=== PATIENT | male | born 1960 | race Caucasian/White ===

== ENCOUNTER 2020-04-04 13:44 | Inpatient (IN) | payer BC, OTHER ==
[2020-04-04] VITALS (10 sets, daily range): BP systolic 98–123; BP diastolic 63–88
[~2020-04-04] VITALS: Ht 182.8 cm; Wt 102.0 kg
[2020-04-04] MEDS ORDERED: polyethylene glycoL POWDER 17 GM (MIRALAX) PACK PO PRN (14:00)
[2020-04-04] MEDS ORDERED: BISACODYL 10 MG SUPP (DULCOLAX) PR PRN (14:00)
[2020-04-04] MEDS ORDERED: MELATONIN 3 MG TABLET PO PRN (14:00)
[2020-04-04] MEDS ORDERED: ONDANSETRON 4 MG/2 ML (SDV) Z0FRAN IV PRN (14:00)
[2020-04-04] MEDS ORDERED: ACETAMINOPHEN 325 MG TABLET PO PRN (14:00)
[2020-04-04] MEDS ORDERED: ONDANSETRON 4 MG (ZOFRAN) ORAL DISSOLVE TAB PO PRN (14:00)
[2020-04-04] MEDS ORDERED: ANTACID SUSP 30 ML UDC (MYLANTA) PO PRN (14:00)
--- NOTE | 2020-04-04 15:55 | History & Physical-Hospitalist ---
History of Present Illness HPI/Chief Complaint Pt is a 60yoCM with a PMH of CAD and HTN who presented to the ER due to chest pain. He states it started today and was intermittent and has actually resolved when he was in the ER. He reports that he recently had a normal stress test and echo but was told that he needed a cath as well but he is unsure why. He follows with Dr Dhillon for cardiology at [place]. He had a heart attack in 2018 that was treated at [place]. He denies any SOB, nausea, diaphoresis, or radiation of the pain. He denies any alleviating or aggravating factors. He does not currently have any chest pain. He was also found to be in a-fib with RVR but denies any palpitations. Source: patient Date Seen 04/04/20 Time Seen by a Provider: 15:40 Attending Physician Randy Mennedez MD PCP Referring Physician Date of Admission Home Medications & Allergies Home Medications Reviewed patient Home Medication Reconciliation performed by pharmacy medication reconciliations emergency room technician and/or nursing. Patients Allergies have been reviewed. Allergies Allergies Coded Allergies prasugrel (Verified Allergy, Unknown, 04/04/20) SOB Physical Exam Physical Exam Vital Signs Vital Signs - First Documented 04/04/20 15:30 Temp 36.7 Capillary Refill : Height, Weight, BMI Height: '" Weight: lbs. oz. kg; BMI Method: General Appearance: No Apparent Distress, WD/WN Eyes: Bilateral Eye Normal Inspection, Bilateral Eye PERRL HEENT: Normal ENT Inspection, Moist Mucous Membranes Neck: Normal Inspection, Supple Respiratory: Chest Non Tender, Lungs Clear, No Accessory Muscle Use, No Respiratory Distress Cardiovascular: No JVD, No Murmur, Irregularly Irregular Gastrointestinal: Normal Bowel Sounds, Non Tender, Soft Extremity: No Calf Tenderness, No Pedal Edema Neurologic/Psychiatric: Alert, Oriented x3, Normal Mood/Affect Skin: Normal Color, Warm/Dry Results Results/Procedures Labs Patient resulted labs reviewed. Assessment/Plan Admission Diagnosis A-fib with RVR Admission Status: Inpatient Order (span 2 midnights) Assessment and Plan A-fib with RVR CAD chest pain HTN New onset Rate was between 90-110 while I was in the room- will monitor on telemetry Cardiology consulted, appreciate recs Will start on cardizem orally Request records from [place] BP was on the low side in outside ER, trend Check troponin here DVT ppx: RANDY Sesay MD Apr 04, 2020 15:55
[2020-04-04] MEDS ORDERED: ENOXAPARIN 100 MG/1 ML (LOVENOX) SYR SC SCH (16:00)
[2020-04-04 16:43] LABS: CHLORIDE 107 MMOL/L (98-107); POTASSIUM 3.9 MMOL/L (3.6-5.0); SODIUM 138 MMOL/L (135-145)
[2020-04-04 16:45] LABS: CALCIUM 9.3 MG/DL (8.5-10.1); GLUCOSE 94 MG/DL (70-105)
[2020-04-04 16:46] LABS: CARBON DIOXIDE 21 MMOL/L (21-32)
[2020-04-04 16:49] LABS: CREATININE SERUM 0.84 MG/DL (0.60-1.30); GFR ESTIMATED > 60
[2020-04-04 16:50] LABS: BUN/CREATININE RATIO 12
[2020-04-04] MEDS ORDERED: AMIODARONE INJECTION 150 MG in D5W 100 ML IVPB 100 ML IV NR (17:30)
[2020-04-04] MEDS ORDERED: AMIODARONE INJECTION 450 MG in D5W IV SOLUTION (EXCEL) 250 ML IV SCH (17:30)
--- NOTE | 2020-04-04 17:33 | Consultation-Cardiology ---
HPI-Cardiology Cardiology Consultation: Date of Consultation 04/04/20 Date of Admission Attending Physician Sujatha Menendez MD Admitting Physician Consulting Physician Narendra SANTILLAN MD HPI: Time Seen by a Provider: 17:33 Pt is a 60yoCM with a PMH of CAD and HTN who presented to the ER due to chest pain. He states it started today and was intermittent and has actually resolved when he was in the ER. He reports that he recently had a normal stress test and echo but was told that he needed a cath as well but he is unsure why. He follows with Dr Dhillon for cardiology at [place]. He had a heart attack in 2018 that was treated at [place]. He denies any SOB, nausea, diaphoresis, or radiation of the pain. He denies any alleviating or aggravating factors. He does not currently have any chest pain. He was also found to be in a-fib with RVR but denies any palpitations. OIZ-Wojvax-Cgoxof Hx Patient Social History Alcohol Use: Denies Use Recreational Drug Use: No Recent Foreign Travel: No Recent Infectious Disease Expo: No Physical Abuse Screen: No Sexual Abuse: No Past Medical History PMH As described under Assessment. Family Medical History Family History: Bone cancer 19 FATHER FH: lung cancer G8 BROTHER Allergies and Home Medications Allergies Coded Allergies: amiodarone (Verified Allergy, Unknown, Shortness of Breath, 04/04/20) SOB,ITCHING,SWEATING prasugrel (Verified Allergy, Unknown, 04/04/20) SOB Home Medications Apixaban 5 Mg Tablet, 5 MG PO BID Prescribed by: ASHLEY DONAHUE on 04/05/20 1747 Aspirin 81 Mg Tab.chew, 81 MG PO DAILY, (Reported) Atorvastatin Calcium 40 Mg Tablet, 40 MG PO HS, (Reported) Carvedilol 3.125 Mg Tablet, 3.125 MG PO BID, (Reported) Clopidogrel Bisulfate 75 Mg Tablet, 75 MG PO DAILY, (Reported) Fluticasone Propionate 16 Gm [place].susp, 1 SPRAY NSEACH BID, (Reported) Isosorbide Mononitrate 30 Mg Tab.er.24h, 30 MG PO DAILY, (Reported) Lisinopril 10 Mg Tablet, 10 MG PO DAILY, (Reported) Nitroglycerin 0.4 Mg Tab.subl, 0.4 MG SL UD PRN for CHEST PAIN (ANGINA), (Reported) Physical Exam-Cardiology Physical Exam Vital Signs/I&O Capillary Refill : Data Review Labs Microbiology 04/04/20 MRSA Screen - Final, Complete MRSA not isolated A/P-Cardiology Plan Thank you for your consultation. Please call me if you have any questions. Travis Santillan MD, FACP, FACC, FSCAI, FHRS, CCDS Interventional Cardiology Cardiac Electrophysiology Vascular Medicine and Endovascular Interventions Clinical Quality Measures DVT/VTE Risk/Contraindication: Risk Factor Score Per Nursin RFS Level Per Nursing on Admit: 2=Moderate Narendra SANTILLAN MD Apr 04, 2020 17:33
[2020-04-04] MEDS ORDERED: CATHETER FLUSH 10 ML SYR IV PRN (17:45)
[2020-04-04] MEDS ORDERED: diphenhydrAMINE 50 MG/ML INJ (BENADRYL) ONE (17:49)
[2020-04-04] MEDS ORDERED: RT-ALBUTEROL SULF 2.5 MG/3 ML PRE-MIX VIAL INH PRN (18:00)
[2020-04-04] MEDS ORDERED: diphenhydrAMINE 50 MG/ML INJ (BENADRYL) IVP ONE (18:00)
[2020-04-04] MEDS: APIXABAN 5 MG (ELIQUIS) TABLET PO SCH (20:11)
[2020-04-04] MEDS: CATHETER FLUSH 10 ML SYR IV SCH (20:11)
[2020-04-05] VITALS (19 sets, daily range): BP systolic 95–125; BP diastolic 58–98
[2020-04-05 03:47] LABS: BASOPHILS # (AUTO) 0.1 10^3/uL (0.0-0.1); BASOPHILS % (AUTO) 1 % (0-10); EOSINOPHILS # (AUTO) 0.1 10^3/uL (0.0-0.3); EOSINOPHILS % (AUTO) 1 % (0-10); HEMATOCRIT 42 % (40-54); HEMOGLOBIN 13.8 G/DL (13.3-17.7); LYMPHOCYTES % (AUTO) 19 % (12-44); MEAN CORPUSCULAR HEMOGLOBIN 30 PG (25-34); MEAN CORPUSCULAR HGB CONC 33 G/DL (32-36); MEAN CORPUSCULAR VOLUME 91 FL (80-99); MEAN PLATELET VOLUME 9.7 FL (7.4-10.4); MONOCYTES # (AUTO) 1.3 X 10^3 (0.0-1.0); MONOCYTES % (AUTO) 12 % (0-12); NEUTROPHILS # (AUTO) 7.1 X 10^3 (1.8-7.8); NEUTROPHILS % (AUTO) 68 % (42-75); PLATELET COUNT 212 10^3/uL (130-400); WHITE BLOOD COUNT 10.6 10^3/uL (4.3-11.0)
[2020-04-05 03:59] LABS: CHLORIDE 105 MMOL/L (98-107); SODIUM 135 MMOL/L (135-145)
[2020-04-05 04:00] LABS: CALCIUM 8.7 MG/DL (8.5-10.1)
[2020-04-05 04:01] LABS: GLUCOSE 119 MG/DL (70-105)
[2020-04-05 04:02] LABS: CARBON DIOXIDE 21 MMOL/L (21-32)
[2020-04-05 04:04] LABS: CREATININE SERUM 0.91 MG/DL (0.60-1.30); GFR ESTIMATED > 60; PHOSPHORUS 4.5 MG/DL (2.3-4.7)
[2020-04-05 04:05] LABS: BUN/CREATININE RATIO 15
[2020-04-05 04:07] LABS: MAGNESIUM 2.1 MG/DL (1.6-2.4)
--- NOTE | 2020-04-05 04:22 | Pulmonary Consultation ---
SERJIO LOFTON MED STUDENT 04/05/20 0422: History of Present Illness History of Present Illness Date Seen by Provider: Apr 05, 2020 Time Seen by Provider: 04:05 Date of Admission History of Present Illness Zeke Reeves is a 60 year old male seen today after experiencing chest pain yesterday. He has a history of CAD with ID in 2018, sees cardiology at [facility]. Describes the chest pain as stabbing in his chest and back, and it occurred while he was driving and has not recurred since. He was found to be in afib w/ RVR, was given amiodarone, nurse note reports he felt hot, anxious, and itching around the neck. This improved when amiodarone was stopped and he was given benadryl, he is now on cardizem and it has not recurred. He has not had any palpitations, SOB, n/v, light-headedness, fevers or chills. Allergies and Home Medications Allergies Coded Allergies: amiodarone (Verified Allergy, Unknown, Shortness of Breath, 04/04/20) SOB,ITCHING,SWEATING prasugrel (Verified Allergy, Unknown, 04/04/20) SOB Past Lgeszrh-Evqnah-Gjistz Hx Patient Social History Alcohol Use: Denies Use Alcohol Beverage of Choice: Other Recreational Drug Use: No Recent Foreign Travel: No Contact w/Someone Who Travel: No Recent Infectious Disease Expo: No Recent Hopitalizations: No Seasonal Allergies Seasonal Allergies: No Past Medical History Surgeries: No Respiratory: No Cardiac: Yes (HEART STENTS X3) Neurological: No Genitourinary: No Gastrointestinal: No Musculoskeletal: No Endocrine: No HEENT: No Cancer: No Psychosocial: No Integumentary: No Blood Disorders: No Family Medical History Bone cancer 19 FATHER FH: lung cancer G8 BROTHER Review of Systems Constitutional: No: Fever, Chills ENT: No: Nose congestion, Throat pain Respiratory: No: Cough, Shortness of breath Cardiovascular: No: Chest Pain (no recurrence), Palpitations, Edema, Lt Headedness Gastrointestinal: No: Nausea, Vomiting, Abdominal Pain, Diarrhea, Constipation Genitourinary: No Dysuria, No Frequency, No Retention Neurological: No: Weakness, Numbness Sepsis Event Evaluation Height, Weight, BMI Height: '" Weight: lbs. oz. kg; 30.52 BMI Method: Exam Exam Vital Signs Date Time Temp Pulse Resp B/P (MAP) Pulse Ox O2 Delivery O2 Flow Rate FiO2 04/05/20 00:00 Room Air 04/04/20 23:00 65 20 114/69 (84) 95 Room Air 04/04/20 22:00 66 21 123/72 (89) 94 Room Air 04/04/20 21:00 73 21 112/68 (83) 95 Room Air 04/04/20 20:31 101 04/04/20 20:00 120 21 109/72 (84) 97 Room Air 04/04/20 20:00 Room Air 04/04/20 19:43 37.2 89 18 101/66 (78) 86 Room Air 04/04/20 19:00 95 04/04/20 19:00 95 8 98/65 (76) 93 Room Air 04/04/20 18:10 94 Nasal Cannula 2.00 04/04/20 18:05 90 High Flow N/C 3.00 04/04/20 18:00 98 20 115/88 (97) 86 Room Air 04/04/20 17:00 125 17 102/63 (76) 95 Room Air 04/04/20 16:28 Room Air 04/04/20 16:20 36.7 108 95 21 04/04/20 16:20 95 Room Air 04/04/20 16:00 111 12 105/74 (84) 96 Room Air 04/04/20 15:40 133 04/04/20 15:30 36.7 04/04/20 15:15 Room Air I & O 04/05/20 06:59 Intake Total 800 ml Output Total 1300 ml Balance -500 ml Height & Weight Height: '" Weight: lbs. oz. kg; 30.52 BMI Method: General Appearance: No Apparent Distress, WD/WN HEENT: PERRL/EOMI; No Scleral Icterus (L), No Scleral Icterus (R) Neck: Normal Inspection, Non Tender, Supple Respiratory: Lungs Clear, Normal Breath Sounds, No Accessory Muscle Use, No Respiratory Distress Cardiovascular: Regular Rate, Rhythm, No JVD, No Murmur, Normal Peripheral Pulses, Irregularly Irregular Peripheral Pulses: 2+ Dorsalis Pedis (R), 2+ Left Dors-Pedis (L), 2+ Radial Pulses (R), 2+ Radial Pulses (L) Extremity: Normal Capillary Refill, Normal Inspection, Non Tender, No Calf Tenderness, No Pedal Edema Neurologic/Psychiatric: Alert, Oriented x3, Normal Mood/Affect Skin: Normal Color, Warm/Dry Results Lab Laboratory Tests 04/04/20 16:25 04/05/20 03:30 Assessment/Plan Assessment/Plan CP hx of CAD, ID 2018 - initial troponin <.028, second pending - consider EKG - cardiology consulted, records requested from [facility] Afib w/ RVR - on oral cardizem - on eliquis - cardiology consulted HTN - 114/69 at last check RITU PARSON DO 04/05/20 0605: Allergies and Home Medications Allergies Coded Allergies: amiodarone (Verified Allergy, Unknown, Shortness of Breath, 04/04/20) SOB,ITCHING,SWEATING prasugrel (Verified Allergy, Unknown, 04/04/20) SOB Past Moxnuot-Ojdfcg-Rdbatz Hx Family Medical History Bone cancer 19 FATHER FH: lung cancer G8 BROTHER Exam Exam General Appearance: No Apparent Distress, WD/WN Assessment/Plan Assessment/Plan CP hx of CAD, ID 2018 - CP now resolved - Troponin negative x 2 - cardiology consulted Afib w/ RVR - on oral cardizem - on eliquis - cardiology consulted HTN - monitor To 4th floor vs home if ok with cardiology and hospitalist. SERJIO LOFTON MED STUDENT Apr 05, 2020 04:22 RITU PARSON DO Apr 05, 2020 06:05
[2020-04-05] MEDS ORDERED: POTASSIUM CL 10MEQ/50ML IVPB 50 ML IV SCH (06:00)
[2020-04-05] MEDS ORDERED: KCL 20 MEQ TAB (K-DUR) PO SCH (06:00)
[2020-04-05] MEDS ORDERED: MAGNESIUM 1 GM/100 ML IVPB 100 ML IV SCH (06:00)
[2020-04-05] MEDS: CATHETER FLUSH 10 ML SYR IV SCH ×2 (06:36→14:57)
[2020-04-05] MEDS: APIXABAN 5 MG (ELIQUIS) TABLET PO SCH (07:51)
--- NOTE | 2020-04-05 08:29 | Diagnostic Imaging Report ---
INDICATION: Atrial fibrillation, hypotension. COMPARISON: None available TECHNIQUE: Single frontal radiograph of the chest dated 04/05/2020. FINDINGS: The cardiac silhouette is mildly enlarged. Mild central pulmonary vascular congestion. The lungs are clear of focal pulmonary opacity. No pleural effusion. No pneumothorax. No acute osseous abnormality. IMPRESSION: Mild cardiomegaly and pulmonary vascular congestion without significant pleural effusion. Dictated by: Dictated on workstation # [id number]
[2020-04-05] MEDS ORDERED: LISI10TA2 PO (10:59)
[2020-04-05] MEDS ORDERED: CARV3.122 PO (10:59)
[2020-04-05] MEDS ORDERED: ISOS30TA3 PO (10:59)
[2020-04-05] MEDS ORDERED: ATOR40TA70 PO (10:59)
[2020-04-05] MEDS ORDERED: FLUT16SP22 NSEACH (10:59)
[2020-04-05] MEDS ORDERED: CLOP75TA28 PO (10:59)
[2020-04-05] MEDS ORDERED: ASPI-999 PO (10:59)
[2020-04-05] MEDS ORDERED: NITR0.4T42 SL (10:59)
[2020-04-05] MEDS ORDERED: NS IV 1000 ML 1,000 ML ONE (11:18)
[2020-04-05] MEDS ORDERED: LIDOCAINE 1% INJ 20 ML 20 ML VIAL ONE (11:18)
[2020-04-05] MEDS ORDERED: HEParin (CATH LAB) 2,000 ML IV ONE (11:18)
[2020-04-05] MEDS ORDERED: fentaNYL INJECTION 100 MCG/2 ML AMP ONE (11:18)
[2020-04-05] MEDS ORDERED: MIDAZOLAM 5 MG/5 ML (VERSED) VIAL ONE (11:18)
--- NOTE | 2020-04-05 11:54 | Progress Note - Hospitalist ---
Subjective HPI/CC On Admission Date Seen by Provider: Apr 05, 2020 Time Seen by Provider: 11:53 Pt is a 60yoCM with a PMH of CAD and HTN who presented to the ER due to chest pain. He states it started today and was intermittent and has actually resolved when he was in the ER. He reports that he recently had a normal stress test and echo but was told that he needed a cath as well but he is unsure why. He follows with Dr Dhillon for cardiology at [facility]. He had a heart attack in 2018 that was treated at [facility]. He denies any SOB, nausea, diaphoresis, or radiation of the pain. He denies any alleviating or aggravating factors. He does not currently have any chest pain. He was also found to be in a-fib with RVR but denies any palpitations. Subjective/Events-last exam Pt reports feeling better today. Converted to sinus rhythm and now feels better. Did have a reaction to amiodarone last night though. Objective Exam Vital Signs Vital Signs Date Time Temp Pulse Resp B/P (MAP) Pulse Ox O2 Delivery O2 Flow Rate FiO2 04/05/20 11:18 Room Air 04/05/20 11:03 36.8 04/05/20 11:00 61 13 109/73 (85) 95 04/04/20 18:10 2.00 04/04/20 16:20 21 Capillary Refill : General Appearance: No Apparent Distress, WD/WN Respiratory: Lungs Clear, No Respiratory Distress Cardiovascular: Regular Rate, Rhythm, No Murmur Gastrointestinal: Normal Bowel Sounds, Soft Neurologic/Psychiatric: Alert, Oriented x3 Results/Procedures Lab Laboratory Tests 04/04/20 16:25 04/05/20 03:30 Patient resulted labs reviewed. Assessment/Plan Assessment and Plan Assess & Plan/Chief Complaint A-fib with RVR CAD chest pain HTN Now converted to sinus Cardiology consulted, appreciate recs Continue oral cardizem Request records from [facility] BP improving Troponin negative here TSH low, will check T4 Defer to cardiology regarding timing of cath DVT ppx: Lovenox Diagnosis/Problems Diagnosis/Problems (1) Atrial fibrillation with RVR Clinical Quality Measures DVT/VTE Risk/Contraindication: Risk Factor Score Per Nursin RFS Level Per Nursing on Admit: 2=Moderate RANDY GAINES MD Apr 05, 2020 11:54
[2020-04-05] MEDS ORDERED: APIX5TAB PO (17:47)
[2020-04-05] MEDS ORDERED: NS IV 1000 ML 1,000 ML IV SCH (17:55)
--- NOTE | 2020-04-05 17:55 | Cardiac Procedure Note-CS/ASA ---
Pre-Procedure Note Pre-Op Procedure Note H&P Reviewed The H&P was reviewed, patient examined and no changes noted. Date H&P Reviewed: Apr 05, 2020 Time H&P Reviewed: 10:00 Conscious Sedation Pre-Proced Time 10:00 ASA Score 3 For ASA 3 and 4: Consider anesthesia and medical clearance. Also, for patients with a history of failed moderate sedation consider anesthesia. Airway Lungs Heart ASA score ASA 1: a normal healthy patient ASA 2: a patient with a mild systemic disease (mid diabetes, controlled hypertension, obesity ASA 3: a patient with a severe systemic disease that limits activity (angina, COPD, prior Myocardial infarction) ASA 4: a patient with an incapacitating disease that is a constant threat to life (CHF, renal failure) ASA 5: a moribund patient not expected to survive 24 hrs. (ruptured aneurysm) ASA 6: a declared brain- patient whose organs are being harvested. For emergent operations, add the letter E after the classification Mallampati Classification Grade 1 Sedation Plan Analgesia, Amnesia, Plan communicated to team members, Discussed options with patient/fam, Discussed risks with patient/fam The patient is an appropriate candidate to undergo the planned procedure, sedation, and anesthesia. The patient immediately re-assessed prior to indication. Narendra MAHER MD Apr 05, 2020 17:55
--- NOTE | 2020-04-05 17:55 | Coronary Angiography Report ---
Coronary Angiography Report DATE OF PROCEDURE: 04/05/20 INDICATION: Chest pain PREOPERATIVE DIAGNOSIS: Chest pain POSTOPERATIVE DIAGNOSIS: Patent epicardial coronary arteries. HISTORY: 60-year-old male with atrial fibrillation and chest pain. Therefore, the patient was scheduled for coronary angiography. PROCEDURES PERFORMED: 1.Coronary angiography. 2.Left heart catheterization. COMPLICATIONS: None. SPECIMENS: None. ESTIMATED BLOOD LOSS: 10 mL ANESTHESIA: Conscious sedation ANTICOAGULATION: IV heparin CONTRAST: 42 mL. FLUOROSCOPY: FLOUROSCOPY DOSE: 369 mgy. PROCEDURE DETAILS: The patient is a 60 male and was brought to the laborer carpentry dock after informed consent was taken. All the risks and complications were explained in detail; this included the risk of bleeding, vascular damage, stroke, OK and even . The patient was draped and prepped in the usual sterile fashion. Access was gained in the right femoral artery 5F sheath. . Coronary angiography and left heart catheterization was done with a JR4 and JL4 catheter. FINDINGS: 1.Left main: Patent. 2.LAD: The first diagonal artery is larger than the main LAD. Patent proximal stent in the first diagonal artery. No significant CAD. 3.Left circumflex artery: Patent OM1 stent. 4.RCA: Mild ostial disease and mild distal disease. Ectatic segment in the mid RCA. 5.Left heart catheterization: LV pressure 110/11 mmHg. Aortic pressure 113/62 mmHg. Normal LV function with no wall motion abnormalities. No gradient across the aortic valve. CONCLUSIONS: Patent stents; No significant CAD. Normal LV function. Travis Santillan MD, FACP, FACC, [facility] Interventional Cardiology Narendra SANTILLAN MD Apr 05, 2020 17:55
--- NOTE | 2020-04-05 17:55 | Cardiology Progress Note ---
Cardiology SOAP Progress Note Objective: I&O/Vital Signs 04/05/20 04/05/20 04/05/20 04/05/20 06:00 06:48 07:00 07:52 Temp 36.7 Pulse 62 60 61 B/P (MAP) 109/66 (80) 106/62 (77) Pulse Ox 93 93 O2 Delivery Room Air Room Air 04/05/20 04/05/20 04/05/20 04/05/20 08:00 08:00 08:24 09:00 Pulse 64 65 B/P (MAP) 110/71 (84) 114/63 (80) Pulse Ox 95 95 95 O2 Delivery Room Air Room Air Room Air Room Air 04/05/20 04/05/20 04/05/20 04/05/20 10:00 11:00 11:03 11:18 Temp 36.8 Pulse 65 61 Resp 16 13 B/P (MAP) 113/70 (84) 109/73 (85) Pulse Ox 95 95 O2 Delivery Room Air Room Air Room Air 04/05/20 04/05/20 04/05/20 04/05/20 12:00 12:57 13:00 14:00 Pulse 63 58 63 67 Resp 29 19 21 B/P (MAP) 108/98 (101) 106/66 (79) 106/65 (79) Pulse Ox 96 95 95 O2 Delivery Room Air Room Air Room Air 04/05/20 04/05/20 04/05/20 15:00 15:42 16:00 Temp 36.8 Pulse 62 Resp 15 B/P (MAP) 102/67 (79) Pulse Ox 94 O2 Delivery Room Air Room Air 04/05/20 00:00 Intake Total 800 ml Output Total 1300 ml Balance -500 ml Results/Procedures: Labs Laboratory Tests 04/05/20 03:30: White Blood Count 10.6, Red Blood Count 4.63, Hemoglobin 13.8, Hematocrit 42, Mean Corpuscular Volume 91, Mean Corpuscular Hemoglobin 30, Mean Corpuscular Hemoglobin Concent 33, Red Cell Distribution Width 13.9, Platelet Count 212, Mean Platelet Volume 9.7, Neutrophils (%) (Auto) 68, Lymphocytes (%) (Auto) 19, Monocytes (%) (Auto) 12, Eosinophils (%) (Auto) 1, Basophils (%) (Auto) 1, Neutrophils # (Auto) 7.1, Lymphocytes # (Auto) 2.0, Monocytes # (Auto) 1.3H, Eosinophils # (Auto) 0.1, Basophils # (Auto) 0.1, Sodium Level 135, Potassium Level 4.0, Chloride Level 105, Carbon Dioxide Level 21, Anion Gap 9, Blood Urea Nitrogen 14, Creatinine 0.91, Estimat Glomerular Filtration Rate > 60, BUN/Creatinine Ratio 15, Glucose Level 119H, Calcium Level 8.7, Phosphorus Level 4.5, Magnesium Level 2.1, Troponin I < 0.028, Free Thyroxine 0.78 Microbiology 04/04/20 MRSA Screen - Final, Complete MRSA not isolated A/P: Thank you for your consultation. Please call me if you have any questions. Travis Santillan MD, FACP, FACC, FSCAI, FHRS, CCDS Interventional Cardiology Cardiac Electrophysiology Vascular Medicine and Endovascular Interventions Narendra SANTILLAN MD Apr 05, 2020 17:55
[2020-04-05] MEDS ORDERED: PATIENT MAY USE OWN MEDS, ALL PO SCH (18:00)
[2020-04-05] MEDS ORDERED: APIXABAN 5 MG (ELIQUIS) TABLET PO SCH (21:00)
== END 2020-04-05 18:40 | disposition home or self-care (01) | DRG 287 ==
LOC: ICU 15:28
PROVIDERS: ADMIT Family Medicine; ATTEND Family Medicine
PROC: 4A023N7 Measurement of Cardiac Sampling and Pressure, Left Heart, Percutaneous Approach (ICD-10-PCS; principal; 2020-04-05)
PROC: B2111ZZ Fluoroscopy of Multiple Coronary Arteries using Low Osmolar Contrast (ICD-10-PCS; 2020-04-05)
PROC: B2151ZZ Fluoroscopy of Left Heart using Low Osmolar Contrast (ICD-10-PCS; 2020-04-05)
DX: I48.91 Unspecified atrial fibrillation (principal); I25.10 Atherosclerotic heart disease of native coronary artery without angina pectoris; I10 Essential (primary) hypertension; I25.2 Old myocardial infarction; Z79.01 Long term (current) use of anticoagulants; Z95.5 Presence of coronary angioplasty implant and graft
CPT/HCPCS: 36415; 71045; 80048; 83735; 84100; 84439; 84443; 84484; 85025; 87081; 93005; 93306; 93458; 94640

== ENCOUNTER 2020-04-15 09:30 | Outpatient (RCR) | payer BC ==
[~2020-04-15 09:30] MED LIST: APIX5TAB PO; ASPI-999 PO; ATOR40TA70 PO; CARV3.122 PO; CLOP75TA28 PO; FLUT16SP22 NSEACH; ISOS30TA3 PO; LISI10TA2 PO; NITR0.4T42 SL
== END 2020-07-14 | disposition home or self-care (01) ==
LOC: CARD 09:30
PROVIDERS: ATTEND Internal Medicine Interventional Cardiology
DX: I48.19 Other persistent atrial fibrillation (principal)

== ENCOUNTER → 2022-06-27 | Outpatient (CLI) | payer BC ==
[~2022-06-27] MED LIST changes: -ISOS30TA3 PO; +ISOS30TA82 PO; -LISI10TA2 PO; +LISI10TA25 PO; +REGADENOSON 0.4 MG/5 ML SYR (LEXISCAN) IV ONE
[2022-06-27] MEDS: CATHETER FLUSH 10 ML SYR IVP PRN ×2 (11:31→11:34)
[2022-06-27 13:15] VITALS: BP 136/68
--- NOTE | 2022-06-27 17:28 | Cardiology Stress Test Report ---
Stress Test Report Date of Procedure/Referring: Date of Procedure: Jun 27, 2022 PCP Admitting Physician Admitting Physician: Attending Physician: Lynsey Reid Baseline Heart Rate: 66 Baseline Blood Pressure: Blood Pressure Systolic: 136 Blood Pressure Diastolic: 68 Baseline Vitals Vital Signs Date Time Temp Pulse Resp B/P (MAP) Pulse Ox O2 Delivery O2 Flow Rate FiO2 06/27/22 13:15 66 136/68 (90) Baseline EKG: Baseline EKG: NSR Summary After explaining the procedure to the patient, he signed a consent and then brought to the stress nuclear laboratory. Patient received 0.4 mg Lexiscan for stress test, ECG, heart rate and blood pressure were monitored continuously. Resting and stress dose of radio tracer were injected, imaging was acquired and reviewed in short axis, horizontal long axis and vertical long axis views. TID: 0.99 SSS: 11 SDS: 2 EF: 60 1. Patient was unable to exercise, test was converted to Lexiscan Myoview stress test, patient tolerated Lexiscan well 2. Diaphragmatic attenuation with fixed defect involving the mid to apical inferior wall with an area of reversibility at the base of the inferior wall and inferolateral wall 3. Normal left ventricular size, normal contractility, ejection fraction 60% NGHIA LARSON MD Jun 27, 2022 17:28
== END ==
LOC: CARD 10:30
PROVIDERS: ATTEND Physician Assistant
DX: I25.10 Atherosclerotic heart disease of native coronary artery without angina pectoris (principal); I10 Essential (primary) hypertension
CPT/HCPCS: 78452; 93017; A9502; C8929; 93306